=== PATIENT | female | born 1980 | race Caucasian/White ===

== ENCOUNTER → 2020-06-27 12:31 | Outpatient (CLI) | payer OTHER, SELFPAY ==
[2020-06-27] MEDS: COVID-19 VACC #1, MRNA(MOD) 100 MCG/0.5 ML VIAL IM (12:37)
== END ==
PROVIDERS: Visit Provider Internal Medicine
DX: Z23 Encounter for immunization (principal)
CPT/HCPCS: 0011A; 91301

== ENCOUNTER → 2020-07-26 12:23 | Outpatient (CLI) | payer OTHER, SELFPAY ==
[2020-07-26] MEDS: COVID-19 VACC #2, MRNA(MOD) 100 MCG/0.5 ML VIAL IM (12:41)
== END ==
PROVIDERS: Visit Provider Internal Medicine
DX: Z23 Encounter for immunization (principal)
CPT/HCPCS: 0012A; 91301

== ENCOUNTER → 2023-06-06 09:26 | Outpatient (CLI) | payer OTHER, SELFPAY ==
--- NOTE | 2023-06-06 09:27 | DI.US.S_ITS ---
PROCEDURE: US THYROID INDICATIONS: SOFT TISSUE DISORDER TECHNIQUE: Real-time scanning was performed of the thyroid gland, with image documentation. COMPARISON: None. FINDINGS: Thyroid: Right lobe measures 5.1 x 1.5 x 2.2 cm. Left lobe measures 4.1 x 1.6 x 1.7 cm. Isthmus is 1.3 cm thick. Echotexture is heterogeneous. Nodule number: 1. Location: Left side of isthmus Size: 1.7 x 1.5 x 1.2 cm. Composition: Predominantly cystic Echogenicity: Hypoechoic Shape: Wider than tall Margins: Smooth Echogenic foci: Non Total points: 3 ACR TI-RADS category: Mildly suspicious. Normal appearing small lymph nodes are noted in bilateral neck soft tissue measures between 4-6 mm in size. IMPRESSION: 1. Mildly suspicious predominantly cystic nodule involving left side of isthmus as above. Ultrasound follow-up based on following recommendation is suggested. ACR TI-RADS definitions and recommendations: TI-RADS 1 (benign): 0 points. FNA not needed. TI-RADS 2 (not suspicious): 2 points. FNA not needed. TI-RADS 3 (mildly suspicious): 3 points. * FNA if 2.5 cm or larger, follow up if 1.5 cm or larger (at 1, 3, and 5 years). TI-RADS 4 (moderately suspicious): 4-6 points. * FNA if 1.5 cm or larger, follow up if 1 cm or larger (at 1, 2, 3, and 5 years). TI-RADS 5 (highly suspicious): 7 points or more. * FNA if 1 cm or larger, follow up if 0.5 cm or larger (every year for 5 years). Dictated by: Avni Lott M.D. on 06/06/2023 at 11:42 Approved by: Avni Lott M.D. on 06/06/2023 at 12:39
== END ==
LOC: US 09:26
PROVIDERS: Referring Provider Physician Assistant; Visit Provider Physician Assistant
DX: E04.1 Nontoxic single thyroid nodule (principal); M79.9 Soft tissue disorder, unspecified
CPT/HCPCS: 76536